=== PATIENT | male | born 1975 | race Caucasian/White ===

== ENCOUNTER 2022-10-16 11:52 | Emergency (ER) | payer OTHER, BC, SELFPAY ==
--- NOTE | ~2022-10-16 | XR_ITS ---
EXAMINATION: XR shoulder RT min 2V DATE: 10/16/2022 13:04 INDICATION: Right shoulder pop while lifting. Unable to lift arm. TECHNIQUE: 4 views of right shoulder were obtained. COMPARISON: None. FINDINGS: Bone alignment is normal. No fracture. Glenohumeral joint is normal. There is mild acromioc lavicular joint osteoarthritis. There is mild calcific tendinitis of the rotator cuff. IMPRESSION: 1. Mild acromioclavicular joint osteoarthritis. 2. Mild calcific tendinitis of the rotator cuff. Reviewed, dictated and finalized at location L.
[2022-10-16 12:04] VITALS: BP 138/78; PULSE 91; RESP 16; TEMP 36.3; O2SAT 98
--- NOTE | 2022-10-16 13:57 | ED.GENADULT ---
HPI - General Adult General Chief complaint: Extremity Injury, Upper Stated complaint: R SHOULDER WORK INJURY Time Seen by Provider: 10/16/22 12:47 Source: patient Mode of arrival: ambulatory Limitations: no limitations History of Present Illness HPI narrative: This is a 46-year-old male who presents to the ED with chief complaint of right shoulder injury occurring at work today. Patient states that he was lifting a box at his [employer] job and had a popping sensation occur in the right shoulder. Reports anterior and lateral right shoulder pain. Endorses limited range of motion due to pain. Denies any numbness, weakness. Denies any further site of pain or injury. Related Data Home Medications Medication Instructions Recorded Confirmed carvedilol 25 mg tablet (Coreg) 25 mg PO BID 10/16/22 ezetimibe 10 mg tablet 10 mg PO DAILY 10/16/22 icosapent ethyl 1 gram capsule 2 g PO BID 10/16/22 (Vascepa) irbesartan 300 1 tablet PO DAILY 10/16/22 mg-hydrochlorothiazide 12.5 mg tablet nifedipine 60 mg tablet,extended 60 mg PO DAILY 10/16/22 release 24 hr pantoprazole 40 mg tablet,delayed 40 mg PO HS 10/16/22 release rosuvastatin 40 mg tablet 40 mg PO DAILY 10/16/22 spironolactone 25 1 tablet PO DAILY 10/16/22 mg-hydrochlorothiazide 25 mg tablet Allergies Allergy/AdvReac Type Severity Reaction Status Date / Time No Known Allergies Allergy Verified 10/16/22 12:18 Review of Systems Review of Systems: CONSTITUTIONAL: Denies fever, chills, or sweats. EYES: Denies visual changes, redness, or discharge. ENT: Denies rhinorrhea, congestion, sore throat, or otalgia. CARDIOVASCULAR: Denies chest pain, palpitations, or edema. RESPIRATORY: Denies cough or dyspnea. GASTROINTESTINAL: Denies abdominal pain, nausea, vomiting, or diarrhea. GENITOURINARY: Denies dysuria or hematuria. SKIN: Denies rash or itching. MUSCULOSKELETAL: See HPI NEUROLOGIC: Denies headache, numbness, dizziness, or weakness. PSYCHIATRIC: Denies anxiety or depression. Exam Narrative: GENERAL: Well-appearing, well-nourished, and in no acute distress. HEAD: Normocephalic, atraumatic. EYES: PERRLA and EOMI. ENT: Nares clear, no rhinorrhea or epistaxis. Mucous membranes moist. Oropharynx without tonsillar hypertrophy exudate or other lesions. NECK: Supple. No adenopathy or masses. CHEST: No respiratory distress. Clear to auscultation. No wheezes rales or rhonchi HEART: Regular rate and rhythm. No murmur heard. Normal peripheral pulses. ABDOMEN: Soft, nontender, nondistended, normal active bowel sounds. MSK: Right shoulder: No deformity or bruising. Mild tenderness to the lateral shoulder and anterior shoulder. Decreased active range of motion due to pain. Full passive range of motion. Neurovascular intact distally. Left shoulder: Benign. No cervical spine tenderness or paraspinal neck tenderness. Musculoskeletal exam is otherwise benign. Ambulatory. SKIN: Warm, dry, no rash. NEURO: Alert and oriented x3. No focal deficits. PSYCH: Normal mood and affect. Course Vital Signs Vital signs: Vital Signs Temperature 97.4 F L 10/16/22 12:04 Pulse Rate 91 10/16/22 12:04 Respiratory Rate 16 10/16/22 12:04 Blood Pressure 138/78 10/16/22 12:04 Pulse Oximetry 98 10/16/22 12:04 Oxygen Delivery Room Air 10/16/22 12:04 Temperature 97.4 F L 10/16/22 12:04 Pulse Rate 91 10/16/22 12:04 Respiratory Rate 16 10/16/22 12:04 Blood Pressure 138/78 10/16/22 12:04 Pulse Oximetry 98 10/16/22 12:04 Oxygen Delivery Room Air 10/16/22 12:04 Medical Decision Making [facility] Narrative Medical decision making narrative: This is a 46-year-old male presents to the ED with chief complaint of right shoulder injury occurring at work today. Patient states he felt a pop and had immediate pain with range of motion. Vitals are stable. Passive range of motion intact, active range of motion reduced due to pain. Rotator
== END 2022-10-16 14:00 | disposition home or self-care (01) ==
PROVIDERS: Emergency Provider Physician Assistant; PCP Family Medicine
DX: S49.91XA Unspecified injury of right shoulder and upper arm, initial encounter (principal); X50.0XXA Overexertion from strenuous movement or load, initial encounter
CPT/HCPCS: 73030; 99283